=== PATIENT | male | born 1965 | race African-American/Black ===

== ENCOUNTER 2016-10-13 02:46 | Observation (INO) ==
[2016-10-13] MEDS ORDERED: SODIUM CHLORIDE 0.9% 500 ML IV STA (03:20)
[2016-10-13] MEDS ORDERED: ONDANSETRON 4 MG/2 ML VIAL IV STA (03:20)
[2016-10-13] MEDS ORDERED: ALUM/MAG/SIMETH/LIDO VISC 1:1 30 ML BOTTLE PO STA (03:20)
[2016-10-13] MEDS ORDERED: ONDANSETRON 4 MG/2 ML VIAL ONE ×2 (03:29→03:32)
[2016-10-13] MEDS ORDERED: ALUM/MAG/SIMETH/LIDO VISC 1:1 30 ML BOTTLE PO ONE (03:29)
[2016-10-13 03:37] LABS: Basophils # 0.1 10*3/uL (0.0-0.2); Basophils % 0.9 % (0.0-0.8); Eosinophils # 0.2 10*3/uL (0.0-0.87); Eosinophils % 2.2 % (0.00-10.9); Hematocrit 36.3 VOL% (42.0-52.0); Hemoglobin 11.9 GM/DL (14.0-18.0); Immature Granulocytes % 0.2 %; Immature Granulocytes Absolute 0.02 #; Lymphocytes # 1.4 10*3/uL (1.4-4.0); Lymphocytes % 16.3 % (21.2-54.2); Mean Corpuscular HGB Conc 32.8 GM/DL (32-36); Mean Corpuscular Hemoglobin 31 PG (27-34); Mean Corpuscular Volume 95.3 FL (87-102); Mean Platelet Volume 10.6 FL (9.6-12.0); Monocytes # 0.7 10*3/uL (0.11-0.8); Monocytes % 8.5 % (1.7-12.7); Neutrophils # 6.3 10*3/uL (1.4-7.4); Neutrophils % 71.9 % (38.7-73.9); Platelet Count 189 T/CUMM (130-400); Red Blood Count 3.81 MC/CUMM (3.8-5.5); Red Cell Distribution Width 11.6 % (9.3-17.3); White Blood Count 8.7 T/CUMM (4-12)
[2016-10-13 03:45] LABS: D-Dimer <= 0.5 MG/L FEU; PT Patient Result 10.6 SECS
[2016-10-13 03:59] LABS: Alanine Aminotransferase 31 U/L (16-61); Albumin 4.5 G/DL (3.4-5.0); Alkaline Phosphatase 92 U/L (45-117); Aspartate Amino Transferase 29 U/L (0-37); Blood Urea Nitrogen 13 MG/DL (7-18); Calcium 8.8 MG/DL (8.5-10.1); Glucose 206 MG/DL (74-106); Magnesium 1.9 MG/DL (1.8-2.4); Potassium 3.4 MMOL/L (3.5-5.1); Sodium 136 MMOL/L (136-145); Total Protein 8.1 G/DL (6.4-8.3)
--- NOTE | 2016-10-13 04:00 | Emergency Department Note ---
IRachna Kasabria, am scribing for, and in the presence of, Lee Villegas MD 03:47. INelly Charles R, MD, personally performed the services described in this documentation, ascribed by Maverick Briscoe in my presence, and it is both accurate and complete . Arrival - Arrival Chief Complaint: Chest Pain Stated Complaint: chest pain ED Nursing Triage Note: C/O Pain across upper chest. Onset night and has been on and off since them. Pt is very uncooperative/yelling/and appears to be under the influence of something. Pt reports using marijuana and drinking 2 beers earlier tonight. Pt refuses to answer most questions states "there is a heart attack coming on". Delay in EKG due to pt being so uncooperative and combative, pulling electrodes off and throwing them. Mode of Arrival: Wheelchair Limitations: No Limitations Source: Patient Time Seen by Provider: 10/13/16 03:07 - History of Present Illness HPI Narrative: Pt is a 51 y/o black male presenting to the ED with c/o pain across upper chest that onset intermittently. Pt has a PMHx consistent with IL with his last IL being one year ago. He also has diabetes and HTN. Pt states he went to [place] and the care was not urgent when he said he believes he is having a IL. Stents were placed. 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 Pt states he has used marijuana, took Celexa tonight, and drunk 2 beers. He continues to states he feels a heart attack coming on. He denies fever, chills, nausea, vomiting, diarrhea, abdominal pain, and diaphoresis. Consistency: constant Severity: moderate Allergies/Adverse Reactions: Allergies Allergy/AdvReac Type Severity Reaction Status Date / Time aspirin AdvReac Unknown/Unable Verified 10/05/15 11:48 to obtain Salt AdvReac Unknown/Unable Verified 10/05/15 11:48 to obtain Home Medications: Home Medications Medication Instructions Recorded Confirmed Type Atorvastatin Calcium 80 mg PO DAILY 03/08/15 03/26/16 History Carvedilol [Coreg] 12.5 mg PO BID 03/08/15 03/29/16 History Lisinopril [Zestril] 40 mg PO DAILY 03/08/15 03/26/16 History Nifedipine [Adalat cc] 90 mg PO DAILY 03/08/15 03/26/16 History Ticagrelor [Brilinta] 90 mg PO BID 03/08/15 10/05/15 History glyBURIDE [Diabeta] 10 mg PO BID W/MEALS 03/08/15 10/05/15 History hydroCHLOROthiazide 1 tablet PO DAILY 03/08/15 03/26/16 History [Hydrochlorothiazide] Dipyridamole [Persantine] 75 mg PO BID #30 tablet 03/10/15 10/05/15 Rx Cyclobenzaprine [Flexeril] 10 mg PO TID #21 tablet 10/05/15 Rx Dorzolamide HCl [Dorzolamide 2% 1 drop BOTH EYES BID 03/26/16 03/26/16 History Oph Soln] Ferrous Sulfate 325 mg PO DAILY 03/26/16 03/26/16 History Potassium Chloride 20 meq PO DAILY 03/26/16 03/26/16 History Pravastatin [Pravachol] 80 mg PO BEDTIME 03/29/16 03/29/16 History Review of System - Review of System 12 point system: reviewed and no additional remarkable complaints except as stated - Review of System Constitutional: Absent: chills, fever Eyes: Absent: vision change Head/Ears/Nose/Throat: Absent: nasal drainage Respiratory: Absent: cough, wheezing Cardiovascular: Present: chest pain, dyspnea on exertion. Absent: syncope Gastrointestinal: Absent: abdominal pain, nausea, vomiting, diarrhea Genitourinary male: Absent: dysuria Musculoskeletal: Absent: arm pain, back pain, leg pain, neck pain Skin: Absent: rash Neurological: Absent: headache, weakness, confusion, abnormal gait, vertigo Psychiatric: Absent: anxiety Endocrine: Absent: fatigue Hematological/Lymphatic: Absent: easy bleeding Allergic/Immunologic: Absent: facial swelling Medical,Surgical,& Family Hx - Medical History Cardio: History of: Hypertension, IL, Cardiovascular Problems (STENT X 2) Neurology: No history of: Seizures Endocrine: History of: Diabetes Mellitus (NIDDM), Dyslipidemia No history of: Diabetes Mellitus (IDDM) Gastrointestinal: No history of: GI Problems (screening) - Surgical History Cardiac Surgeries: Sugical HX of: Cardiac Catheterization Abdominal Surgeries: Patient denies: Cholecystectomy - Family History Family History: Reports;: Family Cancer (FATHER-PANCREATIC), Family Diabetes ( FATHER), Family Hypertension (FATHER), Family Stroke (AUNT) Comment Only: Family Heart Disease (FATHER) - Social History Smoking Status: Never smoker Frequency of Alcohol Use: Frequently Type of Drug Use: Marijuana Exam Vital Signs: Vital Signs Temperature 98.4 F 10/13/16 02:55 Pulse Rate 88 10/13/16 04:53 Respiratory Rate 21 10/13/16 04:53 Blood Pressure 89/53 10/13/16 02:55 O2 Sat by Pulse Oximetry 93 L 10/13/16 04:53 - General General appearance: alert, in no apparent distress, appears intoxicated - Head Head exam: Present: atraumatic, normocephalic, normal inspection - Eye Eye exam: Present: normal appearance, PERRL, EOMI - ENT ENT exam: Present: normal exam, normal oropharynx, mucous membranes moist, TM's normal bilaterally, normal external ear exam - Neck Neck exam: Present: normal inspection, full ROM, trachea midline. Absent: tenderness - Chest Chest inspection: Present: normal inspection, symmetric chest wall rise. Absent : tenderness - Respiratory Respiratory exam: Present: normal lung sounds bilaterally - Cardiovascular Cardiovascular exam: Present: regular rate, normal rhythm, normal heart sounds - Abdominal Exam Abdominal exam: Present: soft, distention, normal bowel sounds. Absent: tenderness, guarding - Extremities Exam Extremities exam: Present: normal inspection, full ROM, normal capillary refill. Absent: tenderness, pedal edema, calf tenderness - Back Exam Back exam: Present: normal inspection, full ROM. Absent: tenderness - Neurological Exam Neurological exam: Present: alert, oriented X3, CN II-XII intact, normal gait, reflexes normal - Psychiatric Psychiatric exam: Present: normal affect, normal mood - Skin Skin exam: Present: warm, dry, intact, normal color. Absent: rash, diaphoresis Course - Consultations Consultation #1: Call mechanical maintenance engineer admissions gate attendant Dr. Lv Sanchez, EKGs presented to to him pictures EKGs, 1 from January 06, 2016, the one from [facility] showed some ST changes in 2 3 and aVF. He said this patient does not have an acute IL at this time there need to go to the Automobile Repossessor. Medically worked him up serial enzymes Time: 03:35 Consultation #2: Hospitalist will admit patient Time: 04:39 Results - Labs CBC & BMP: 10/13/16 03:15 10/13/16 03:15 Lab Results: I have reviewed the patients labs Critical Care Time Critical Care Time: Yes Total Critical Care Time: 60 Disposition Clinical Impression: Chest pain, Coronary artery disease, Diabetes, Hyperlipidemia, Abnormal EKG, Marijuana abuse, Borderline elevated troponin Case discussed with: patient, patient's family Disposition: Still a Patient Condition: Guarded Time of Disposition: 04:40
[2016-10-13 04:33] LABS: Apearance,Urine Slightly Hazy (Clear); Bacteria,Urine Many /HPF (Few); Bilirubin,Urine Negative (Negative); Blood, Urine Negative (Negative); Glucose,Urine (UA) 50 mg/dL (Negative); Hyaline Casts,Urine 21 /LPF (0-3); Ketones,Urine Negative (Negative); Mucus,Urine Occasional /LPF (Occasional); Nitrite,Urine Negative (Negative); Protein,Urine 100 MG/DL; RBC,Urine 2 /HPF (0-4); Squamous Epithelial Cell,Urine Occasional /HPF (0-10); Urine Color Yellow (Yellow); Urine Specific Gravity 1.016 (1.001-1.035); Urine Urobilinogen < 2.0 EU/DL (0.2-1.0); WBC,Urine 4 /HPF (0-6)
[2016-10-13] MEDS ORDERED: ALBUTEROL/IPRATROPIUM 3 ML NEB RESP TX STA (04:38)
[2016-10-13] MEDS ORDERED: methylPREDNISolone SOD SUC 125 MG/2 ML VIAL IV STA (04:38)
[2016-10-13 04:39] LABS: Barbiturates Screen,Urine Negative (Negative); Benzodiazepines Screen,Urine Negative (Negative); Cannabinoid Screen,Urine Positive (Negative); Opiate Screen,Urine Negative (Negative); Phencyclidine Screen,Urine Negative (Negative)
[2016-10-13] MEDS ORDERED: FUROSEMIDE 20 MG/2 ML VIAL IV STA (04:51)
[2016-10-13] MEDS ORDERED: methylPREDNISolone SOD SUC 125 MG/2 ML VIAL ONE (04:53)
[2016-10-13] MEDS ORDERED: ENOXAPARIN 100 MG/ML SYRINGE SUBCUT STA (04:59)
[2016-10-13] MEDS ORDERED: FUROSEMIDE 20 MG/2 ML VIAL ONE (05:01)
[2016-10-13] MEDS ORDERED: ENOXAPARIN 100 MG/ML SYRINGE SUBCUT ONE (05:01)
[2016-10-13] MEDS ORDERED: ALBUTEROL/IPRATROPIUM 3 ML NEB RESP TX PRN (06:08)
[2016-10-13] MEDS ORDERED: ONDANSETRON 4 MG/2 ML VIAL IV PRN (06:08)
[2016-10-13] MEDS ORDERED: SODIUM CHLORIDE 0.9% 1,000 ML IV SCH (06:08)
[2016-10-13] MEDS ORDERED: MORPHINE 2 MG/1 ML SYRINGE IV PRN (06:08)
[2016-10-13] MEDS ORDERED: DEXTROSE 50% 25 GM/50 ML VIAL IV PRN (06:08)
[2016-10-13] MEDS ORDERED: GLUCAGON 1 MG VIAL IM PRN (06:08)
[2016-10-13] MEDS ORDERED: guaiFENesin/CODEINE 5 ML LIQUID PO PRN (06:10)
--- NOTE | 2016-10-13 06:21 | Hospitalist History & Physical ---
Assessment and Plan (1) Chest pain Status: Acute Assessment and plan: Admitted to telemetry for observation. Serial cardiac enzymes. Check lipids Check TSH Consult cardiology. Resume home medications. Current Visit: Yes Qualifiers: Chest pain type: unspecified Qualified Code(s): R07.9 - Chest pain, unspecified (2) Coronary artery disease Status: Acute Current Visit: Yes Qualifiers: Coronary Disease-Associated Artery/Lesion type: platinum artery [place] vs. transplanted heart: platinum heart Associated angina: with unspecified angina Qualified Code(s): I25.119 - Atherosclerotic heart disease of platinum coronary artery with unspecified angina pectoris (3) Hypertension Status: Chronic Current Visit: No Qualifiers: Hypertension type: essential hypertension Qualified Code(s): I10 - Essential (primary) hypertension (4) Diabetes Status: Chronic Current Visit: Yes Qualifiers: Diabetes mellitus type: type 2 Diabetes mellitus complication status: with hyperglycemia Diabetes mellitus predatory animal exterminator insulin use: without longterm use Qualified Code(s): E11.65 - Type 2 diabetes mellitus with hyperglycemia (5) Hyperlipidemia Status: Chronic Current Visit: Yes Qualifiers: Hyperlipidemia type: unspecified Qualified Code(s): E78.5 - Hyperlipidemia , unspecified (6) Abnormal EKG Status: Acute Current Visit: Yes (7) Marijuana abuse Status: Chronic Current Visit: Yes History of Present Illness Chief complaint: chest pain History of present illness: Mr. Lofton is a 51 year old male with a hx of CAD, DM2, and HTN [facility]. Reports sx's began on and have worsened. The pain is across the upper chest and is intermittent. Pain is severe and feels like a previous HI. He was shouting and making a scene according to the staff in the ER. An EKG was discussed with the ER Doctor and the academic support specialist construction secretary but the photo lab manager was not activated. I have been asked to admit the patient for observation and rule out ACS. He denies fever, chills, nausea, vomiting, diarrhea, abdominal pain, and diaphoresis. Home Medications Medication Instructions Recorded Confirmed Type Atorvastatin Calcium 80 mg PO DAILY 03/08/15 03/26/16 History Carvedilol [Coreg] 12.5 mg PO BID 03/08/15 03/29/16 History Lisinopril [Zestril] 40 mg PO DAILY 03/08/15 03/26/16 History Nifedipine [Adalat cc] 90 mg PO DAILY 03/08/15 03/26/16 History Ticagrelor [Brilinta] 90 mg PO BID 03/08/15 10/05/15 History glyBURIDE [Diabeta] 10 mg PO BID W/MEALS 03/08/15 10/05/15 History hydroCHLOROthiazide 1 tablet PO DAILY 03/08/15 03/26/16 History [Hydrochlorothiazide] Dipyridamole [Persantine] 75 mg PO BID #30 tablet 03/10/15 10/05/15 Rx Cyclobenzaprine [Flexeril] 10 mg PO TID #21 tablet 10/05/15 Rx Dorzolamide HCl [Dorzolamide 2% 1 drop BOTH EYES BID 03/26/16 03/26/16 History Oph Soln] Ferrous Sulfate 325 mg PO DAILY 03/26/16 03/26/16 History Potassium Chloride 20 meq PO DAILY 03/26/16 03/26/16 History Pravastatin [Pravachol] 80 mg PO BEDTIME 03/29/16 03/29/16 History Allergies Allergy/AdvReac Type Severity Reaction Status Date / Time aspirin AdvReac Unknown/Unable Verified 10/05/15 11:48 to obtain Salt AdvReac Unknown/Unable Verified 10/05/15 11:48 to obtain Medical,Surgical,& Family Hx - Medical History Cardio: History of: Hypertension, HI, Cardiovascular Problems (STENT X 2) Neurology: No history of: Seizures Endocrine: History of: Diabetes Mellitus (NIDDM), Dyslipidemia No history of: Diabetes Mellitus (IDDM) Gastrointestinal: No history of: GI Problems (screening) - Surgical History Cardiac Surgeries: Sugical HX of: Cardiac Catheterization Abdominal Surgeries: Patient denies: Cholecystectomy - Family History Family History: Reports;: Family Cancer (FATHER-PANCREATIC), Family Diabetes ( FATHER), Family Hypertension (FATHER), Family Stroke (AUNT) Comment Only: Family Heart Disease (FATHER) - Social History Smoking Status: Never smoker Frequency of Alcohol Use: Frequently Type of Drug Use: Marijuana Functional capacity: independent ambulation 12 point system: reviewed and no additional remarkable complaints except as stated - Constitutional Constitutional: Present: as per HPI Exam - Constitutional Vitals: Period Temp Pulse Resp BP Sys/Rico Pulse Ox Last 24 Hr 21 Exam: Constitutional System: Mild distress. No tremulousness. Head: Normocephalic, atraumatic. Ears, Nose and Throat System: No pain or tenderness. No epistaxis or discharge Eyes System: Pupils equal, round, and reactive. Extraocular muscles intact. Neck: Supple, without adenopathy, No jugular venous distention. No thyromegaly, neck mass, or prior surgery apparent. Respiratory System: Chest clear to auscultation. Cardiovascular System: Heart with regular rate and rhythm. No murmur. GI System: Abdomen soft, nontender. Normo active bowel sounds present. Musculoskeletal System: limbs with no pedal edema. Full distal pulses. Neurological System: No discernable sensory deficit. No aphasia Psychiatric System: Conversation is rational Results - Labs CBC & BMP: 10/13/16 03:15 10/13/16 03:15 Lab Results: I have reviewed the past 24 hour labs - Diagnostic Findings Procedure: Chest x-ray: image reviewed by me Quality Measures - VTE Contraindication to Pharmacological VTE Prophylaxis: Already on Theraputic Agent , No Prophylaxis Needed
[2016-10-13] MEDS ORDERED: POTASSIUM CHLORIDE 20 MEQ TABLET PO ONE (06:28)
[2016-10-13 07:03] LABS: Risk Ratio 3.13
--- NOTE | 2016-10-13 07:35 | EKG Report ---
Stationary ECG Study 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
[2016-10-13] MEDS ORDERED: FUROSEMIDE 40 MG/4 ML VIAL IV ONE (08:00)
[2016-10-13] MEDS ORDERED: glyBURIDE 5 MG TABLET PO SCH (08:00)
--- NOTE | 2016-10-13 08:05 | EKG Report ---
Stationary ECG Study [facility] Test Date: 10/13/2016 8:04:03 AM Pat Name: DEREK BALL Department: Room: 280 Gender: M Director Of Recruiting: : 1965 Requested by: Israel Stovall Order Number: [id number] Esau MD: NENA DUNLAP Intervals [place] Rate: 115 P: 999 VT: 0 QRS: 78 QRSD: 93 T: 78 QT: 345 QTc: 413 Interpretive Statements ATRIAL FIBRILLATION WITH RAPID VENTRICULAR RESPONSE ST ELEVATION CONSISTENT WITH INJURY, PERICARDITIS, OR EARLY REPOLARIZATION Electronically Signed On 10-15-16 06:32:57 CDT by NENA DUNLAP [id number]
[2016-10-13] MEDS ORDERED: NALOXONE 0.4 MG/ML VIAL ONE (08:57)
[2016-10-13] MEDS ORDERED: NITROGLYCERIN 2% OINT 1 INCH/GM PACK TOP SCH (09:00)
[2016-10-13] MEDS ORDERED: PANTOPRAZOLE 40 MG TABLET PO SCH (09:00)
[2016-10-13] MEDS ORDERED: LEVOFLOXACIN INJ 750 MG in PREMIX 1 EACH IV SCH (09:00)
[2016-10-13] MEDS ORDERED: POTASSIUM CHLORIDE 20 MEQ TABLET PO SCH (09:00)
[2016-10-13] MEDS ORDERED: TICAGRELOR 90 MG TABLET PO SCH (09:00)
[2016-10-13] MEDS ORDERED: ATORVASTATIN 80 MG TABLET PO SCH (09:00)
[2016-10-13] MEDS ORDERED: NALOXONE 0.4 MG/ML VIAL IV ONE (09:01)
--- NOTE | 2016-10-13 09:27 | XRay Report ---
History: Chest pain Date: 10/13/2016 Study: Chest x-ray AP portable Comparison exam: March 08, 2015 chest x-ray There is mild cardiomegaly. The mediastinal contours are similar. The pulmonary vasculature is mildly prominent. There is some hazy and patchy bibasilar parenchymal disease which could represent pulmonary edema or inflammatory infiltrate. There is no gross pleural effusion or pneumothorax. Osseous structures are similar. Impression: Mild bibasilar pulmonary edema/infiltrate. Pulmonary edema related to cardiac decompensation is favored over pneumonia PROCEDURE INTERPRETED AT [facility] DEPARTMENT OF RADIOLOGY Final Report Signed by: Dr. Radha Perez
[2016-10-13 09:37] LABS: Allen Test Positive
[2016-10-13 09:41] LABS: ABG Base Excess -3.1 MMOL/L (-2.5-2.5); ABG HCO3 21.8 MMOL/L (20-26); ABG Oxygen Saturation 99.4 % (95-100); ABG PH 7.359 (7.35-7.45); ABG TCO2 19.5 MMOL/L (23-27)
--- NOTE | 2016-10-13 09:47 | Pulmonology Consult Note ---
Assessment and Plan (1) Congestive heart failure Status: Acute Assessment and plan: The patient's chest x-ray looks like mild heart failure. He is getting some diuretics. Current Visit: Yes (2) Chest pain Status: Acute Assessment and plan: The patient has an abnormal EKG and known coronary artery disease. He is being evaluated by cardiology. Current Visit: Yes Qualifiers: Chest pain type: unspecified Qualified Code(s): R07.9 - Chest pain, unspecified (3) Coronary artery disease Status: Acute Assessment and plan: He apparently has had stents in the past. Current Visit: Yes Qualifiers: Coronary Disease-Associated Artery/Lesion type: enterprise artery [place] vs. transplanted heart: enterprise heart Associated angina: with unspecified angina Qualified Code(s): I25.119 - Atherosclerotic heart disease of [place] coronary artery with unspecified angina pectoris (4) Hypertension Status: Chronic Assessment and plan: His blood pressure is actually been on the low side. Current Visit: No Qualifiers: Hypertension type: essential hypertension Qualified Code(s): I10 - Essential (primary) hypertension (5) Diabetes Status: Chronic Assessment and plan: His glucose was 206 when he came in. Current Visit: Yes Qualifiers: Diabetes mellitus type: type 2 Diabetes mellitus complication status: with hyperglycemia Diabetes mellitus [facility] insulin use: without [facility] use Qualified Code(s): E11.65 - Type 2 diabetes mellitus with hyperglycemia History of Present Illness Chief complaint: Shortness of breath History of present illness: Mr. Lofton is a 51 year old black male that apparently has known coronary artery disease along with hypertension and borderline diabetes. He came in with chest pain and shortness of breath over the past couple days. He apparently had severe chest pain in the emergency room and required narcotics. This morning apparently he became more lethargic and is having more shortness of breath and hypoxemia. He is now on a nonrebreather and looks a little more comfortable. He says he has not had any lung problems in the past. He says he does not smoke cigarettes but smokes marijuana. He said he lost from over 400 pounds down to 194. He says his diabetes is better since he lost weight. He does take blood pressure medicines. He apparently has had stents in the past. Home Medications Medication Instructions Recorded Confirmed Type Atorvastatin Calcium 80 mg PO DAILY 03/08/15 03/26/16 History Carvedilol [Coreg] 12.5 mg PO BID 03/08/15 03/29/16 History Lisinopril [Zestril] 40 mg PO DAILY 03/08/15 03/26/16 History Nifedipine [Adalat cc] 90 mg PO DAILY 03/08/15 03/26/16 History Ticagrelor [Brilinta] 90 mg PO BID 03/08/15 10/05/15 History glyBURIDE [Diabeta] 10 mg PO BID W/MEALS 03/08/15 10/05/15 History hydroCHLOROthiazide 1 tablet PO DAILY 03/08/15 03/26/16 History [Hydrochlorothiazide] Dipyridamole [Persantine] 75 mg PO BID #30 tablet 03/10/15 10/05/15 Rx Cyclobenzaprine [Flexeril] 10 mg PO TID #21 tablet 10/05/15 Rx Dorzolamide HCl [Dorzolamide 2% 1 drop BOTH EYES BID 03/26/16 03/26/16 History Oph Soln] Ferrous Sulfate 325 mg PO DAILY 03/26/16 03/26/16 History Potassium Chloride 20 meq PO DAILY 03/26/16 03/26/16 History Pravastatin [Pravachol] 80 mg PO BEDTIME 03/29/16 03/29/16 History Allergies Allergy/AdvReac Type Severity Reaction Status Date / Time aspirin AdvReac Unknown/Unable Verified 10/05/15 11:48 to obtain Salt AdvReac Unknown/Unable Verified 10/05/15 11:48 to obtain - Constitutional Constitutional: Present: weight loss. Absent: chills, fever(s) - EENT Eyes: Absent: loss of vision Ears: Absent: decreased hearing Nose, mouth and throat: Absent: dysphagia, headache(s), sinus pressure - Cardiovascular Cardiovascular: Present: chest pain at rest, dyspnea. Absent: edema, PND - Respiratory Respiratory: Present: cough, dyspnea. Absent: hemoptysis, change in phlegm color - Gastrointestinal Gastrointestinal: Absent: abdominal pain, dysphagia, nausea, vomiting - Genitourinary Genitourinary: Absent: difficulty urinating, dysuria, hematuria - Musculoskeletal Musculoskeletal: Absent: arthralgias Exam (Pulmonay) H&P - Constitutional Vitals: Period Temp Pulse Resp BP Sys/Rico Pulse Ox Last 24 Hr 96.4 F-98.1 F 78-116 14-22 107-114/62-72 73-98 General appearance: normal weight, mild distress, other (He arouses easily and looks like he is breathing comfortably on facemask O2.) - Head Head exam: Present: normal inspection, normocephalic - Eye Eye exam: Present: EOMI. Absent: scleral icterus Pupils: Present: RAMÓN - ENT ENT exam: Present: normal exam - Neck Neck exam: Present: normal inspection. Absent: lymphadenopathy, thyromegaly - Respiratory Respiratory exam: Present: rales, other (He has extended rales bilaterally). Absent: wheezes - Cardiovascular Cardiovascular exam: Present: irregular rhythm, rubs (It is hard to hear a rub) . Absent: gallop, systolic murmur, tachycardia - GI/Abdominal GI/Abdominal exam: Present: normal bowel sounds, soft. Absent: organomegaly, tenderness - Extremities Exam Extremities exam: Absent: calf tenderness, edema - Neurological Exam Neurological exam: Present: alert - Psychiatric Psychiatric exam: Present: normal affect - Skin Skin exam: Present: warm, dry Medical,Surgical,& Family Hx - Medical History Cardio: History of: Hypertension, PR, Cardiovascular Problems (STENT X 2) Neurology: No history of: Seizures Endocrine: History of: Diabetes Mellitus (NIDDM), Dyslipidemia No history of: Diabetes Mellitus (IDDM) Gastrointestinal: No history of: GI Problems (screening) - Surgical History Cardiac Surgeries: Sugical HX of: Cardiac Catheterization Thoracic Surgeries: Patient denies;: Lobectomy Abdominal Surgeries: Patient denies: Cholecystectomy - Family History Family History: Reports;: Family Cancer (FATHER-PANCREATIC), Family Diabetes ( FATHER), Family Hypertension (FATHER), Family Stroke (AUNT) Comment Only: Family Heart Disease (FATHER) - Social History Smoking Status: Never smoker Frequency of Alcohol Use: Frequently Type of Drug Use: Marijuana Results - Labs CBC & BMP: 10/13/16 03:15 10/13/16 03:15 Labs: His ABGs show PO2 of 155 with a PCO2 of 39 and a pH of 7.3. He does have elevated enzymes - EKG EKG shows: atrial fibrillation (EKG shows ST-T changes inferiorly and laterally) - Diagnostic Findings Procedure: Chest x-ray: image reviewed by me, report reviewed by me (Chest x- ray looks like mild CHF) Quality Measures - VTE Contraindication to Pharmacological VTE Prophylaxis: Already on Theraputic Agent , No Prophylaxis Needed
--- NOTE | 2016-10-13 09:57 | Event Note ---
Patient seen as follow-up. He is hypoxic and may have been a little more sedated after he received Robitussin before meals and morphine. His FiO2 has been increased. He also is 9 atrial fibrillation with RVR and his troponin is GEM II 2. He is currently on Brilinta and did receive full-strength Lovenox earlier this morning. His chest x-ray appears to be more pulmonary edema. With him requiring high flow oxygen I think it's best to transfer him to CCU for close monitoring specially since he has NSTEMI. I had empirically started him on antibiotics and pulmonary will see him but more than likely this is congestive heart failure, non-ST elevation [place] and sedation causing hypoxia. I' m restarting him on full-strength Lovenox still cardiology sees him. We will also had some breathing treatments. His blood gases acceptable at this time.
[2016-10-13] MEDS ORDERED: TIROFIBAN IV ONE (10:44)
[2016-10-13] MEDS ORDERED: METOPROLOL TARTRATE 25 MG TABLET PO ONE (10:57)
[2016-10-13] MEDS ORDERED: ALBUTEROL/IPRATROPIUM 3 ML NEB RESP TX SCH (11:00)
[2016-10-13] MEDS ORDERED: TIROFIBAN 5,000 MCG/100 ML PREMIX IV SCH (11:00)
--- NOTE | 2016-10-13 11:07 | EKG Report ---
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
--- NOTE | 2016-10-13 11:19 | Cardiology Consult Note ---
Assessment and Plan (1) NSTEMI (non-ST elevated myocardial infarction) Status: Acute Assessment and plan: 1. 51-year-old BM with history of hypertension, diabetes, dyslipidemia, known CAD status post [facility] January 2015 who presented here February 2015 with mid circumflex in-stent occlusion which was successful angioplasty and stent at that time oh (also noted to have at least moderate proximal LAD disease and diffuse significant RCA disease) with normal LV function being noted; he now presented last night with some paranoia and combativeness complaining of chest pain shortness of breath with initial trivial troponin elevation 2. Early repolarization with some ST-T changes somewhat suggestive of ischemia last night, he developed atrial fibrillation rhythm this morning, but is now back in normal sinus rhythm 3. Follow-up EKG shows no significant ST depression or elevation suggesting injury, this chest pain is now resolved (is had some earlier this morning) 4. Paranoia/anxiety suggestive of illicit drug use; his drug screen is only positive for marijuana, when asked about if he take any other drugs for the situation last night he reports "I can't remember" 5. He is uncertain if he has aspirin allergy or not "I can't remember, I might be"; will abstain from aspirin until he can get a definitive answer; a call to his mother was made and a message was left. 6. Low-dose beta shine, high-intensity statin therapy 7. We'll give Aggrastat for now with Lovenox 8. Will hold Brilinta, as he may well have surgical disease, tentatively plan for heart catheterization Saturday 9. Pulmonary edema; agree with IV diuresis 10. Check echocardiogram Current Visit: Yes (2) Paranoia Status: Acute Current Visit: Yes (3) Hypertension Status: Chronic Current Visit: No Qualifiers: Hypertension type: essential hypertension Qualified Code(s): I10 - Essential (primary) hypertension (4) Congestive heart failure Status: Acute Current Visit: Yes History of Present Illness - Consult Narrative History of present illness: Mr. Lofton is a 51 year old male who apparently had myocardial infarction at [facility] January 2015 and came back February 2015 here with mid circumflex stent thrombosis which was angioplastied and stented with good result. He had at least moderate proximal LAD disease, had diffuse significant RCA disease at that time. He had normal LV function the time. He came in with chest pain shortness of breath was combative and was felt to be on some sort illicit drug emergency room last night. He had anxiety and did receive some morphine and became sedated this morning. That was reversed with Narcan, but he still drifts off to sleep intermittently. More than that he has a sort of paranoia. He cannot remember what happened last night, although he can tell me the date and his location. I asked about his possible aspirin allergy any has no idea. He says "I might be allergic". He cannot tell me any previous adverse reactions to it. CC: Israel Stovall MD - Home Medications and Allergies Home Medications: Home Medications Medication Instructions Recorded Confirmed Type Atorvastatin Calcium 80 mg PO DAILY 03/08/15 03/26/16 History Carvedilol [Coreg] 12.5 mg PO BID 03/08/15 03/29/16 History Lisinopril [Zestril] 40 mg PO DAILY 03/08/15 03/26/16 History Nifedipine [Adalat cc] 90 mg PO DAILY 03/08/15 03/26/16 History Ticagrelor [Brilinta] 90 mg PO BID 03/08/15 10/05/15 History glyBURIDE [Diabeta] 10 mg PO BID W/MEALS 03/08/15 10/05/15 History hydroCHLOROthiazide 1 tablet PO DAILY 03/08/15 03/26/16 History [Hydrochlorothiazide] Dipyridamole [Persantine] 75 mg PO BID #30 tablet 03/10/15 10/05/15 Rx Cyclobenzaprine [Flexeril] 10 mg PO TID #21 tablet 10/05/15 Rx Dorzolamide HCl [Dorzolamide 2% 1 drop BOTH EYES BID 03/26/16 03/26/16 History Oph Soln] Ferrous Sulfate 325 mg PO DAILY 03/26/16 03/26/16 History Potassium Chloride 20 meq PO DAILY 03/26/16 03/26/16 History Pravastatin [Pravachol] 80 mg PO BEDTIME 03/29/16 03/29/16 History Allergies/Adverse Reactions: Allergies Allergy/AdvReac Type Severity Reaction Status Date / Time aspirin AdvReac Unknown/Unable Verified 10/05/15 11:48 to obtain Salt AdvReac Unknown/Unable Verified 10/05/15 11:48 to obtain Medical,Surgical,& Family Hx - Medical History Cardio: History of: Hypertension, [place], Cardiovascular Problems (STENT X 2) Neurology: No history of: Seizures Endocrine: History of: Diabetes Mellitus (NIDDM), Dyslipidemia No history of: Diabetes Mellitus (IDDM) Gastrointestinal: No history of: GI Problems (screening) - Surgical History Cardiac Surgeries: Sugical HX of: Cardiac Catheterization Thoracic Surgeries: Patient denies;: Lobectomy Abdominal Surgeries: Patient denies: Cholecystectomy - Family History Family History: Reports;: Family Cancer (FATHER-PANCREATIC), Family Diabetes ( FATHER), Family Hypertension (FATHER), Family Stroke (AUNT) Comment Only: Family Heart Disease (FATHER) - Social History Smoking Status: Never smoker Frequency of Alcohol Use: Frequently Type of Drug Use: Marijuana Physical Examination Vital Signs Temp Pulse Resp BP Pulse Ox 98.4 F 60 20 105/71 97 10/13/16 02:55 10/13/16 02:55 10/13/16 02:55 10/13/16 02:55 10/13/16 02:55 General: Present: Other (anxious/paranoia) HEENT: Present: Normocephaly Neck: Present: Supple Neck, Midline Trachea, No JVD/HJR (difficult exam) Lungs: Present: Rales - Left, Rales - Right, No Wheezes Abdomen: Present: Soft. Absent: Tender Extremities: Present: No Edema. Absent: Cool Result/EKG - Labs CBC & BMP: 10/13/16 03:15 10/13/16 03:15 Labs: Laboratory Results - last 24 hr 10/13/16 10/13/16 10/13/16 06:18 06:18 06:18 ABG pH ABG pCO2 ABG pO2 ABG HCO3 ABG Total CO2 ABG O2 Saturation ABG Base Excess FiO2 POC Glucose Troponin I 0.290 H D B-Natriuretic Peptide Triglycerides 135 Cholesterol 191 LDL Cholesterol 122.0 VLDL Cholesterol 27.0 HDL Cholesterol 61 H Heart Disease Risk Ratio 3.13 TSH 3rd Generation 1.880 10/13/16 10/13/16 10/13/16 07:30 08:46 08:47 ABG pH ABG pCO2 ABG pO2 ABG HCO3 ABG Total CO2 ABG O2 Saturation ABG Base Excess FiO2 POC Glucose 263 H Troponin I 2.250 H D B-Natriuretic Peptide 59 Triglycerides Cholesterol LDL Cholesterol VLDL Cholesterol HDL Cholesterol Heart Disease Risk Ratio TSH 3rd Generation 10/13/16 09:25 ABG pH 7.359 ABG pCO2 39.0 ABG pO2 155.0 H ABG HCO3 21.8 ABG Total CO2 19.5 L ABG O2 Saturation 99.4 ABG Base Excess -3.1 L FiO2 100.00 POC Glucose Troponin I B-Natriuretic Peptide Triglycerides Cholesterol LDL Cholesterol VLDL Cholesterol HDL Cholesterol Heart Disease Risk Ratio TSH 3rd Generation Quality Measures - VTE Contraindication to Pharmacological VTE Prophylaxis: Already on Theraputic Agent , No Prophylaxis Needed
[2016-10-13] MEDS: INSULIN REGULAR 100 UNIT/ML SUBCUT SCH ×2 (11:27)
--- NOTE | 2016-10-13 12:19 | ECHO Report ---
Lv Lofton Exam Date: 10/13/2016 11:45 Referring Physician: Technologist: Esther CRAFT Age: 51 Ht (in): Wt (lb): Gender: M Exam Location: [facility] Echo Indications: CHF, NSTEMI, Chest pain, elevated troponin BP: / HR: Rhythm: Sinus Technical Quality: IMPRESSIONS Normal chamber sizes Borderline to mildly reduced overall LV systolic function with ejection fraction estimated to be 45-50% with inferobasilar akinesis. 1-2+ mitral and tricuspid regurgitation with RVSP 20 mmHg plus RAP MEASUREMENTS (Male / Female) Normal Values 2D ECHO LV Diastolic Diameter PLAX 4.8 cm 4.2 - 5.9 / 3.9 - 5.3 cm LV Systolic Diameter PLAX 3.6 cm LV Fractional Shortening PLAX 24.9 % IVS Diastolic Thickness 1.4 cm 0.6 - 1.0 / 0.6 - 0.9 cm LVPW Diastolic Thickness 1.5 cm 0.6 - 1.0 / 0.6 - 0.9 cm RV Internal Dim ED PLAX 2.8 cm Aortic Root Diameter 3.1 cm LA Systolic Diameter LX 3.9 cm 3.0 - 4.0 / 2.7 - 3.8 cm FINDINGS Left Ventricle Normal left ventricular cavity size. Mild concentric left ventricular hypertrophy.left ventricular ejection fraction is estima Right Ventricle Normal right ventricular size. Right Atrium Normal right atrial size. Left Atrium Normal left atrial size. Mitral Valve Mild mitral valve sclerosis. Moderate mitral valve regurgitation. Aortic Valve Mild aortic valve sclerosis without stenosis or regurgitation. Tricuspid Valve Morphologically normal tricuspid valve. Mild tricuspid valve regurgitation. Tricuspid regurgitation velocities suggest a PAP of 20.0 mmHg + RAP. Pulmonic Valve Morphologically normal pulmonic valve. Pericardium No pericardial effusion. Aorta Normal size aortic root and proximal ascending aorta. Cristi Galindo (Electronically Signed) Final Date: 13 October 2016 12:18
--- NOTE | 2016-10-13 12:43 | Event Note ---
I was involved with Dr. Stovall in prolonged CODE BLUE. I placed triple-lumen catheter right groin. He never regained pulse despite 30 minutes of CPR and ACLS protocol. He had a rhythm throughout the most but eventually when asystole when code was called. We both when talked to his mother and explained the situation. She said he had multiple brain surgeries in [place] for tumors? ( Explains his memory issues. She says he moved in with her because he was unable to take care of himself.
--- NOTE | 2016-10-13 12:45 | Operative Note ---
Date of procedure: 10/13/16 Pre-op diagnosis: CODE BLUE Procedure: Procedure performed: Right femoral vein triple lumen catheter placement Anesthesia: None as the patient was unconscious during CODE BLUE for PDA. Description: I placed a dilator in his right femoral vein using a Seldinger technique. Next a triple-lumen catheter was exchanged out for the dilator was sewn in place. The ports were flushed and IV drug for given as needed. Anesthesia: other Surgeon / Physician: Cristi Galindo Estimated blood loss: minimal Specimens: none sent Condition: critical Disposition: ICU Results - Labs CBC & BMP: 10/13/16 03:15 10/13/16 03:15 Discharge Plan - Discharge Medications No Action glyBURIDE [Diabeta] 10 mg PO BID W/MEALS Nifedipine [Adalat cc] 90 mg PO DAILY hydroCHLOROthiazide [Hydrochlorothiazide] 1 tablet PO DAILY Carvedilol [Coreg] 12.5 mg PO BID Atorvastatin Calcium 80 mg PO DAILY Lisinopril [Zestril] 40 mg PO DAILY Ticagrelor [Brilinta] 90 mg PO BID Dipyridamole [Persantine] 75 mg PO BID #30 tablet Cyclobenzaprine [Flexeril] 10 mg PO TID #21 tablet Ferrous Sulfate 325 mg PO DAILY Dorzolamide HCl [Dorzolamide 2% Oph Soln] 1 drop BOTH EYES BID Potassium Chloride 20 meq PO DAILY Pravastatin [Pravachol] 80 mg PO BEDTIME - Follow Up or Referral - Forms/Instructions
--- NOTE | 2016-10-13 12:55 | Operative Note ---
Date of procedure: 10/13/16 Procedure: Patient had acute cardiac and respiratory arrest requiring intubation. This was done in an emergency using a Vilas scope with ET tube 8. Vocal cords were visualized and ET tube was inserted without difficulty. Position was checked with carbon monoxide monitor with appropriate color change and by auscultation. Chest x-ray was not done as patient was undergoing active CPR. Surgeon / Physician: Israel Stovall Results - Labs CBC & BMP: 10/13/16 03:15 10/13/16 03:15 Discharge Plan - Discharge Medications No Action glyBURIDE [Diabeta] 10 mg PO BID W/MEALS Nifedipine [Adalat cc] 90 mg PO DAILY hydroCHLOROthiazide [Hydrochlorothiazide] 1 tablet PO DAILY Carvedilol [Coreg] 12.5 mg PO BID Atorvastatin Calcium 80 mg PO DAILY Lisinopril [Zestril] 40 mg PO DAILY Ticagrelor [Brilinta] 90 mg PO BID Dipyridamole [Persantine] 75 mg PO BID #30 tablet Cyclobenzaprine [Flexeril] 10 mg PO TID #21 tablet Ferrous Sulfate 325 mg PO DAILY Dorzolamide HCl [Dorzolamide 2% Oph Soln] 1 drop BOTH EYES BID Potassium Chloride 20 meq PO DAILY Pravastatin [Pravachol] 80 mg PO BEDTIME - Follow Up or Referral - Forms/Instructions
--- NOTE | 2016-10-13 12:57 | Event Note ---
Patient had an acute cardiopulmonary arrest. He was awake and alert and certainly became anxious pulled his needs out and had sudden respiratory distress with cardiac arrest. Previous to that he complained of some chest pain and subsequently that was resolved. He underwent CPR and received atropine and epinephrine and bicarbonate. He also received dopamine. He did not respond to CPR measures and ACLS protocol. He was subsequently pronounced at. His mother was notified during CPR and off to CPR up his demise. I personally spoke with her on 2 occasions.
--- NOTE | 2016-10-13 13:17 | Discharge Summary ---
Hospital Course - Hospital Course Hospital Course: 51-year-old -[place] male with history of coronary artery disease with 2 stents in the past, recreational drug use including marijuana who presented with chest pain and agitation. His urine drug screen was positive for marijuana. He initially had borderline troponin in the emergency room early this morning. Cardiology was consulted and after discussion between ER physician Dr. Villegas and Dr. Sanchez from cardiology it was felt that this was not an acute myocardial infarction requiring cardiac catheterization. Cardiology recommended patient to be admitted to hospital medicine with serial troponins. Patient had allergy to aspirin therefore his home Brilinta was continued patient was admitted early this morning to my service. Saw the patient on follow-up and at that time he was more sedated and denied any chest pain but would not talk much. We did a stat blood gas since she was having trouble keeping his oxygen saturation up however his blood gas was acceptable at 155 PO2 on oxygen. His troponin had gone up to the range of 2 and cardiology was already consulted and we advise nursing staff to inform them of the results. I ordered patient to be transferred to coronary care unit for close monitoring. We also restarted Lovenox at full strength twice a day. His chest x-ray appeared to be more pulmonary edema and his symptoms were more consistent with pulmonary edema and not pneumonia however to be on the safe side antibiotics were initiated along with breathing treatments and blood cultures were done. He was given a dose of Lasix as well since he had worsening hypoxia. He was also given 0.2 mg of Narcan to which she responded and was more awake. He had received morphine early in the morning for pain along with Robitussin ac. When pulmonary saw him he was more awake and alert and then cardiology saw him he was somewhat paranoid but was able to communicate. His echocardiogram showed possibly an ejection fraction of 40-45% with inferior wall hypokinesis. After arriving into the coronary care unit he was able to get in bed and was denying chest pain. He suddenly started getting more agitated pulled his leads out along with his IV and stated he couldn't breathe and then had cardiopulmonary arrest. ACLS protocol was initiated including intubation, epinephrine, one dose of atropine initially given when he became bradycardic with respiratory failure and some bicarbonate. He did not respond to ACLS. Case was discussed during and after with his mother. - Time spent with patient Time with patient DS: Greater than 30 minutes Discharge Plan - Discharge Data Disposition: - Discharge Medications No Action glyBURIDE [Diabeta] 10 mg PO BID W/MEALS Nifedipine [Adalat cc] 90 mg PO DAILY hydroCHLOROthiazide [Hydrochlorothiazide] 1 tablet PO DAILY Carvedilol [Coreg] 12.5 mg PO BID Atorvastatin Calcium 80 mg PO DAILY Lisinopril [Zestril] 40 mg PO DAILY Ticagrelor [Brilinta] 90 mg PO BID Dipyridamole [Persantine] 75 mg PO BID #30 tablet Cyclobenzaprine [Flexeril] 10 mg PO TID #21 tablet Ferrous Sulfate 325 mg PO DAILY Dorzolamide HCl [Dorzolamide 2% Oph Soln] 1 drop BOTH EYES BID Potassium Chloride 20 meq PO DAILY Pravastatin [Pravachol] 80 mg PO BEDTIME - Follow Up or Referral - Forms/Instructions Exam - Constitutional Vitals: Period Temp Pulse Resp BP Sys/Rico Pulse Ox Last 24 Hr 96.4 F-98.1 F 78-116 14-22 107-114/62-72 73-98 Discharge Results Procedures and tests throughout hospitalization: Pending Orders 10/13/16 08:30 Blood Culture Stat 10/13/16 10:25 MRSA Surveillence, Inf Control Routine 10/14/16 04:00 XR chest 1V portable IN AM B-Type Natriuretic Peptide IN AM Basic Metabolic Panel w/Mg IN AM Comp Blood Count Auto Diff IN AM Comprehensive Metabolic Panel IN AM Magnesium IN AM Labs on day of discharge: Labs from last 24 hours 10/13/16 10/13/16 10/13/16 10:59 09:25 08:47 ABG pH 7.359 ABG pCO2 39.0 ABG pO2 155.0 H ABG HCO3 21.8 ABG Total CO2 19.5 L ABG O2 Saturation 99.4 ABG Base Excess -3.1 L FiO2 100.00 POC Glucose 198 H Troponin I 2.250 H D B-Natriuretic Peptide Triglycerides Cholesterol LDL Cholesterol VLDL Cholesterol HDL Cholesterol Heart Disease Risk Ratio TSH 3rd Generation 10/13/16 10/13/16 10/13/16 08:46 07:30 06:18 ABG pH ABG pCO2 ABG pO2 ABG HCO3 ABG Total CO2 ABG O2 Saturation ABG Base Excess FiO2 POC Glucose 263 H Troponin I B-Natriuretic Peptide 59 Triglycerides Cholesterol LDL Cholesterol VLDL Cholesterol HDL Cholesterol Heart Disease Risk Ratio TSH 3rd Generation 1.880 10/13/16 10/13/16 06:18 06:18 ABG pH ABG pCO2 ABG pO2 ABG HCO3 ABG Total CO2 ABG O2 Saturation ABG Base Excess FiO2 POC Glucose Troponin I 0.290 H D B-Natriuretic Peptide Triglycerides 135 Cholesterol 191 LDL Cholesterol 122.0 VLDL Cholesterol 27.0 HDL Cholesterol 61 H Heart Disease Risk Ratio 3.13 TSH 3rd Generation DS: Provider Date of admission: 10/13/16 05:00 Primary care physician: . No PCP Attending physician on admission: Israel Stovall MD Consults: 10/13/16 06:08 Consult to Case Mgmt/Social Srvs [CONS] Routine Reason for Case Mgmt/Social Srvs: Rehab Consult to Physician [CONS] Routine Comment: Chest pain Consulting Provider: Cardiology - [facility] When should Consulting Provider be notified: In am 10/13/16 07:59 Consult to Physician [CONS] Routine Comment: Consulting Provider: When should Consulting Provider be notified: In am Consult to Specialist Group: Pulmonology When should Consulting Provider be notified: Now Consult Notification Comment: pneumonia sob Discharging clinician: Israel Stovall MD
[2016-10-13 14:39] VITALS: BP 57/34
[2016-10-13] MEDS ORDERED: METOPROLOL TARTRATE 25 MG TABLET PO SCH (15:00)
[2016-10-13] MEDS ORDERED: FUROSEMIDE 40 MG/4 ML VIAL IV SCH (16:00)
[2016-10-13] MEDS ORDERED: ENOXAPARIN 100 MG/ML SYRINGE SUBCUT SCH (17:00)
[2016-10-13] MEDS ORDERED: methylPREDNISolone SOD SUC 40 MG/1 ML VIAL IV SCH (18:00)
== END 2016-10-13 12:26 | disposition expired ==
LOC: N.ED 02:46 → N.EDINP 02:46 → N.TELEN 05:29 → N.CC 10:18
PROVIDERS: ADMIT Internal Medicine; ATTEND Internal Medicine